=== PATIENT | female | born 1980 | race American Indian/Alaskan Native ===

== ENCOUNTER 2017-04-15 15:22 | Emergency (ER) | payer BC, OTHER ==
[2017-04-15] MEDS ORDERED: LOVENOX SUB-Q ONE (17:14)
--- NOTE | 2017-04-15 17:19 | Emergency Department Report ---
ED General Adult HPI - General Chief complaint: Syncope Stated complaint: SEIZURE Time Seen by Provider: 04/15/17 17:04 Source: patient Mode of arrival: Stretcher Limitations: No Limitations - History of Present Illness Initial comments: Patient is 37 years old female history of seizure, DVT/PE, he is on Lovenox 150 daily, Keppra and Norvasc 10 mg. Patient stated that she recently moved to this area and she is out of her medication and she wants refill and a referral to a local primary care physician. Patient also stated that she injured her left knee and left leg just prior to coming to the ER. Patient denied any chest pain, shortness of breath, swelling in legs, headache, weakness numbness or tingling sensation. Severity scale (0 -10): 0 - Related Data Home Medications Medication Instructions Recorded Confirmed Last Taken Keppra 100 mg PO DAILY 04/15/17 04/15/17 1 Week Ago ~04/08/17 100 Lisinopril 04/15/17 2 Days Ago ~04/13/17 25 Lovenox 150 mg SC DAILY 04/15/17 04/15/17 150 Zoloft 25 mg PO PRN 04/15/17 2 Days Ago ~04/13/17 25 Allergies Allergy/AdvReac Type Severity Reaction Status Date / Time No Known Allergies Allergy Unverified 04/15/17 16:37 ED Review of Systems ROS: Stated complaint: SEIZURE Other details as noted in HPI Comment: All other systems reviewed and negative Constitutional: denies: chills, fever ENT: denies: ear pain Respiratory: denies: cough, orthopnea, shortness of breath Cardiovascular: denies: chest pain, palpitations, dyspnea on exertion, orthopnea , edema, syncope, paroxysmal nocturnal dyspnea Gastrointestinal: denies: abdominal pain, nausea, vomiting, diarrhea, constipation, hematemesis, melena, hematochezia Neurological: denies: headache, weakness, numbness, paresthesias ED Past Medical Hx - Past Medical History Previous Medical History?: Yes Hx Hypertension: Yes Hx Deep Vein Thrombosis: Yes Hx Pulmonary Embolism: Yes Hx Seizures: Yes - Medications Home Medications: Home Medications Medication Instructions Recorded Confirmed Last Taken Type Keppra 100 mg PO DAILY 04/15/17 04/15/17 1 Week Ago History ~04/08/17 100 Lisinopril 02/24/18 2 Days Ago History ~04/13/17 25 Lovenox 150 mg SC DAILY 04/15/17 04/15/17 History 150 Zoloft 25 mg PO PRN 04/15/17 2 Days Ago History ~04/13/17 25 ED Physical Exam - General Limitations: No Limitations General appearance: alert, in no apparent distress - Head Head exam: Present: atraumatic, normocephalic, normal inspection - Eye Eye exam: Present: normal appearance, PERRL Pupils: Present: normal accommodation - ENT ENT exam: Present: normal exam, normal orophraynx, mucous membranes moist - Neck Neck exam: Present: normal inspection, full ROM. Absent: tenderness, meningismus, lymphadenopathy, thyromegaly - Respiratory Respiratory exam: Present: normal lung sounds bilaterally. Absent: respiratory distress, wheezes, rales, rhonchi, stridor, chest wall tenderness, accessory muscle use, decreased breath sounds, prolonged expiratory - Cardiovascular Cardiovascular Exam: Present: regular rate, normal rhythm, normal heart sounds - GI/Abdominal GI/Abdominal exam: Present: soft, normal bowel sounds. Absent: distended, tenderness, guarding, rebound, rigid, diminished bowel sounds, hyperactive bowel sounds, hypoactive bowel sounds, organomegaly, mass, bruit, pulsatile mass , hernia - Extremities Exam Extremities exam: Present: normal inspection, full ROM, normal capillary refill , other (mild tenderness and bruises to the left lower leg anteriorly.). Absent : calf tenderness - Back Exam Back exam: Present: normal inspection, full ROM. Absent: tenderness, CVA tenderness (R), CVA tenderness (L), muscle spasm, paraspinal tenderness, vertebral tenderness, rash noted - Neurological Exam Neurological exam: Present: alert, oriented X3, CN II-XII intact, normal gait, reflexes normal. Absent: motor sensory deficit - Skin Skin exam: Present: warm, intact, normal color. Absent: cyanosis ED Course Vital Signs 04/15/17 04/15/17 04/15/17 15:34 15:44 16:36 Temperature 98.4 F 98.4 F Pulse Rate 84 84 89 Respiratory 20 20 Rate Blood Pressure 137/65 Blood Pressure 137/65 [Right] O2 Sat by Pulse 96 96 Oximetry ED Medical Decision Making - Lab Data Result diagrams: 04/15/17 17:02 04/15/17 17:02 - Radiology Data Radiology results: image reviewed interpreted by me: Left knee x-ray, left tib-fib x-ray with no acute fracture or dislocation. Critical care attestation.: If time is entered above; I have spent that time in minutes in the direct care of this critically ill patient, excluding procedure time. ED Disposition Clinical Impression: Contusion of left knee and lower leg, History of seizure, History of pulmonary embolism Disposition: DC- TO HOME OR SELFCARE Is pt being admited?: No Condition: Stable Instructions: Hypertension (ED), Recurrent Seizures Adult (ED) Referrals: KENY ANEDRSON MD [Staff Physician] - 3-5 Days
[2017-04-15 17:23] LABS: Hematocrit 40.8 % (30.3-42.9); Hemoglobin 12.6 gm/dl (10.1-14.3); Mean Corpuscular HGB Conc 31 % (30-34); Mean Corpuscular Hemoglobin 31 pg (28-32); Mean Corpuscular Volume 99 fl (79-97); Platelet Count 330 K/mm3 (140-440); Red Blood Count 4.14 M/mm3 (3.65-5.03); Red Cell Distribution Width 14.5 % (13.2-15.2)
[2017-04-15 17:28] LABS: Alanine Aminotransferase 12 units/L (7-56); Albumin 3.1 g/dL (3.9-5); BUN/Creatinine Ratio 16; Blood Urea Nitrogen 11 mg/dL (7-17); Hemolysis Index 24
[2017-04-15 17:29] LABS: INR 1.08 (0.87-1.13)
[2017-04-15 17:29] LABS: Bacteria,Urine 4+ /HPF (Negative); Bilirubin,Urine NEG (Negative); Blood,Urine NEG (Negative); Color,Urine Yellow (Yellow); Mucus,Urine FEW /HPF; Protein,Urine <15 mg/dL mg/dL (Negative)
[2017-04-15 17:30] LABS: Partial Thromboplastin Time 40.5 Sec. (24.2-36.6)
--- NOTE | 2017-04-15 17:39 | XRay Report ---
FINAL REPORT EXAM: XR CHEST ROUTINE 2V HISTORY: Near Syncope TECHNIQUE: Two view chest PA and lateral PRIORS: None. FINDINGS: Cardiac and mediastinal contours are unremarkable. No focal pulmonary infiltrate is identified. No pleural fluid collection seen. Pulmonary vasculature is unremarkable. IMPRESSION: Negative two-view chest
--- NOTE | 2017-04-15 18:37 | XRay Report ---
FINAL REPORT EXAM: XR KNEE 1-2V LT HISTORY: left knee injury TECHNIQUE: Left knee 2 views PRIORS: None. FINDINGS: No fracture is identified. No dislocation seen. No evidence of joint effusion. Patella demonstrates normal positioning. No acute bony abnormality identified. IMPRESSION: Negative knee series
--- NOTE | 2017-04-15 18:44 | XRay Report ---
FINAL REPORT EXAM: XR TIBIA FIBULA 2V LT HISTORY: injury to left leg TECHNIQUE: Left tibia fibula AP and lateral views PRIORS: None. FINDINGS: No fracture is identified. No dislocation seen. No evidence of joint effusion. No acute bony abnormality identified. IMPRESSION: Negative no acute abnormality identified
[2017-04-15 19:12] VITALS: BP 133/68
== END 2017-04-15 19:10 | disposition home or self-care (01) ==
LOC: ED 15:22
DX: S80.02XA Contusion of left knee, initial encounter (principal); S80.12XA Contusion of left lower leg, initial encounter; I10 Essential (primary) hypertension; R56.9 Unspecified convulsions; Z86.718 Personal history of other venous thrombosis and embolism; Z86.711 Personal history of pulmonary embolism; X58.XXXA Exposure to other specified factors, initial encounter; Y93.89 Activity, other specified; Y92.89 Other specified places as the place of occurrence of the external cause; Y99.8 Other external cause status
CPT/HCPCS: 36415; 71046; 73560; 73590; 80053; 81001; 85025; 85610; 85730; 93005; 93010; 96372; 99284; J1650